=== PATIENT | female | born 1950 | race Caucasian/White ===

== ENCOUNTER 2019-01-28 13:02 | Inpatient (IN) ==
[2019-01-28] MEDS ORDERED: SODIUM CHLORIDE 0.9% 1,000 ML IV STA (14:06)
[2019-01-28 14:43] LABS: Apearance,Urine CLEAR (Clear); Bilirubin,Urine Negative (Negative); Blood, Urine Negative (Negative); Glucose,Urine (UA) >=500 mg/dL (Negative); Ketones,Urine Negative (Negative); Mucus,Urine Occasional /LPF (Occasional); Nitrite,Urine Negative (Negative); Protein,Urine Negative; RBC,Urine 2 /HPF (0-4); Squamous Epithelial Cell,Urine Occasional /HPF (0-10); Urine Color Yellow (Yellow); Urine Urobilinogen < 2.0 EU/DL (0.2-1.0); WBC,Urine 1 /HPF (0-6)
[2019-01-28 15:40] LABS: Basophils % 0.5 % (0.0-0.8); Eosinophils # 0.1 10*3/uL (0.0-0.87); Eosinophils % 0.7 % (0.00-10.9); Hematocrit 32.7 VOL% (35.7-47.0); Hemoglobin 9.9 GM/DL (12.0-16.0); Immature Granulocytes % 0.4 %; Immature Granulocytes Absolute 0.03 #; Lymphocytes % 27.1 % (21.3-54.2); Mean Corpuscular HGB Conc 30.3 GM/DL (32-36); Mean Corpuscular Volume 81.8 FL (87-102); Mean Platelet Volume 9.6 FL (9.6-12.0); Monocytes % 5.8 % (1.7-12.7); Neutrophils % 65.5 % (38.7-73.9); Platelet Count 446 T/CUMM (130-400); Red Cell Distribution Width 18.8 % (9.3-17.3); White Blood Count 7.3 T/CUMM (4-12)
[2019-01-28 16:05] LABS: Alanine Aminotransferase 11 U/L (13-56); Albumin 2.2 G/DL (3.4-5.0); Alkaline Phosphatase 104 U/L (45-117); Aspartate Amino Transferase 16 U/L (0-37); Bilirubin,Total < 0.39 MG/DL (0.2-1.0); Blood Urea Nitrogen 10 MG/DL (7-18); Calcium 7.3 MG/DL (8.5-10.1); Glucose 134 MG/DL (74-106); Osmolality,Calculated 275.7 MOS/KG (273-304); Total Protein 4.9 G/DL (6.4-8.3)
[2019-01-28 16:42] LABS: Sedimentation Rate-Westergren 11 MM/HR (0-30)
[2019-01-28] MEDS ORDERED: DOCUSATE SODIUM 100 MG CAPSULE PO PRN (17:37)
[2019-01-28] MEDS ORDERED: ACETAMINOPHEN 325 MG TABLET PO PRN (17:37)
[2019-01-28] MEDS ORDERED: POTASSIUM CHLORIDE 20 MEQ TABLET PO ONE (17:42)
[2019-01-28] MEDS ORDERED: DEXT 5% NACL 0.9% KCL 20 MEQ 20 MEQ/1,000 ML BAG IV SCH (18:00)
[2019-01-28 18:37] LABS: Barbiturates Screen,Urine Negative (Negative); Benzodiazepines Screen,Urine Negative (Negative); Cannabinoid Screen,Urine Negative (Negative); Opiate Screen,Urine Negative (Negative); Phencyclidine Screen,Urine Negative (Negative)
[2019-01-28] MEDS ORDERED: PNEUMOCOCCAL VACCINE (13 VALENT) 0.5 ML SYRINGE IM ONE (19:15)
[2019-01-28] MEDS: POTASSIUM CHLORIDE 20 MEQ TABLET PO SCH (21:09)
[2019-01-28] MEDS: ENOXAPARIN 30 MG/0.3 ML SYRINGE SUBCUT SCH (21:09)
[2019-01-28] MEDS: ONDANSETRON 4 MG/2 ML VIAL IV PRN (22:21)
[2019-01-29 06:24] LABS: Basophils % 0.5 % (0.0-0.8); Eosinophils % 0.4 % (0.00-10.9); Hematocrit 29.6 VOL% (35.7-47.0); Hemoglobin 9.3 GM/DL (12.0-16.0); Immature Granulocytes % 0.4 %; Immature Granulocytes Absolute 0.02 #; Lymphocytes # 1.9 10*3/uL (1.4-4.0); Lymphocytes % 34.8 % (21.3-54.2); Mean Corpuscular HGB Conc 31.4 GM/DL (32-36); Mean Corpuscular Volume 79.8 FL (87-102); Mean Platelet Volume 11.3 FL (9.6-12.0); Monocytes % 5.6 % (1.7-12.7); Neutrophils % 58.3 % (38.7-73.9); Platelet Count 269 T/CUMM (130-400); Red Blood Count 3.71 MC/CUMM (3.8-5.5); Red Cell Distribution Width 18.9 % (9.3-17.3); White Blood Count 5.5 T/CUMM (4-12)
[2019-01-29 06:42] LABS: % Iron Saturation 23.4 % (18-50); Ferritin 8.8 ng/ml (8-252)
[2019-01-29 06:51] LABS: Calcium 7.4 MG/DL (8.5-10.1); Osmolality,Calculated 278.3 MOS/KG (273-304); Thyroid Stimulating Hormone 3.6 uIU/ml (0.358-3.74)
[2019-01-29 06:52] LABS: Folate 6.8 NG/ML (5.4-24.0); Vitamin B12 286 PG/ML (211-911)
[2019-01-29] MEDS ORDERED: MAGNESIUM SULF RIDER 2 GM in PREMIX 1 EACH IV PRN (07:22)
[2019-01-29] MEDS ORDERED: MAGNESIUM SULF RIDER 4 GM in PREMIX 1 EACH IV PRN (07:22)
[2019-01-29] MEDS: POTASSIUM CHLORIDE 20 MEQ TABLET PO SCH ×3 (08:36→21:40)
[2019-01-29] MEDS: buPROPion SR 100 MG TABLET PO SCH (08:36)
[2019-01-29] MEDS: MULTIVITAMIN (BEROCCA) TABLET PO SCH (08:36)
[2019-01-29] MEDS: NICOTINE 21 MG/24 HR PATCH TRANSDERM SCH (08:37)
[2019-01-29 08:39] LABS: Sedimentation Rate-Westergren 7 MM/HR (0-30)
[2019-01-29] MEDS ORDERED: DEXTROSE 10% 250 ML BAG IV PRN (10:26)
[2019-01-29] MEDS ORDERED: GLUCAGON 1 MG VIAL IM PRN (10:26)
[2019-01-29] MEDS: CYANOCOBALAMIN 1000 MCG/1 ML VIAL IM SCH (11:13)
[2019-01-29] MEDS: SODIUM CHLOR 0.9% KCL 40 MEQ 40 MEQ/1,000 ML BAG IV SCH (11:13)
[2019-01-29] MEDS: FAT EMULSION 20% 250 ML IV SCH (14:16)
[2019-01-29] MEDS: ONDANSETRON 4 MG/2 ML VIAL IV PRN (14:47)
[2019-01-29] MEDS: ERGOCALCIFEROL 50,000 UNIT CAPSULE PO SCH (16:21)
[2019-01-29] MEDS ORDERED: TRACE ELEMENTS (5) 1 ML, MULTIVITAMIN INJ 10 ML in AMINO ACIDS/DEXT/LYTES 4.25-5% 2,000 ML IV SCH (17:00)
[2019-01-29] MEDS: PROMETHAZINE 25 MG/1 ML VIAL IM PRN (17:18)
[2019-01-29] MEDS: ENOXAPARIN 30 MG/0.3 ML SYRINGE SUBCUT SCH (21:40)
[2019-01-30] MEDS: PROMETHAZINE 25 MG/1 ML VIAL IM PRN (01:28)
[2019-01-30] MEDS: SODIUM CHLOR 0.9% KCL 40 MEQ 40 MEQ/1,000 ML BAG IV SCH (01:55)
[2019-01-30 04:43] LABS: Basophils % 0.4 % (0.0-0.8); Eosinophils # 0.1 10*3/uL (0.0-0.87); Eosinophils % 1.1 % (0.00-10.9); Hematocrit 28.5 VOL% (35.7-47.0); Hemoglobin 8.6 GM/DL (12.0-16.0); Immature Granulocytes % 0.4 %; Immature Granulocytes Absolute 0.03 #; Lymphocytes # 2.3 10*3/uL (1.4-4.0); Lymphocytes % 32.2 % (21.3-54.2); Mean Corpuscular HGB Conc 30.2 GM/DL (32-36); Mean Corpuscular Volume 82.6 FL (87-102); Mean Platelet Volume 10.7 FL (9.6-12.0); Monocytes % 6.1 % (1.7-12.7); Neutrophils % 59.8 % (38.7-73.9); Platelet Count 366 T/CUMM (130-400); Red Blood Count 3.45 MC/CUMM (3.8-5.5); Red Cell Distribution Width 18.8 % (9.3-17.3); White Blood Count 7.3 T/CUMM (4-12)
[2019-01-30 05:34] LABS: Calcium 7.4 MG/DL (8.5-10.1); Osmolality,Calculated 273.5 MOS/KG (273-304)
[2019-01-30] MEDS: POTASSIUM CHLORIDE 20 MEQ TABLET PO SCH ×3 (08:31→20:56)
[2019-01-30] MEDS: NICOTINE 21 MG/24 HR PATCH TRANSDERM SCH (08:31)
[2019-01-30] MEDS: MULTIVITAMIN (BEROCCA) TABLET PO SCH (08:31)
[2019-01-30] MEDS: buPROPion SR 100 MG TABLET PO SCH (08:32)
[2019-01-30] MEDS ORDERED: SODIUM PHOSPHATE INJ 15 MMOL in SODIUM CHLORIDE 0.9% 250 ML IV ONE (09:08)
[2019-01-30] MEDS ORDERED: IRON SUCROSE 100 MG/5 ML VIAL IV SCH (09:30)
[2019-01-30] MEDS: CYANOCOBALAMIN 1000 MCG/1 ML VIAL IM SCH (09:30)
[2019-01-30] MEDS: IRON SUCROSE 100 MG in SODIUM CHLORIDE 0.9% 100 ML IV SCH (14:11)
[2019-01-30] MEDS: FAT EMULSION 20% 250 ML IV SCH (14:40)
[2019-01-30] MEDS: TRACE ELEMENTS (5) 1 ML, MULTIVITAMIN INJ 10 ML in AMINO ACIDS/DEXT/LYTES 4.25-5% 2,000 ML IV SCH (17:14)
[2019-01-30] MEDS: diphenhydrAMINE CAP 25 MG CAPSULE PO PRN (20:56)
[2019-01-30] MEDS: ENOXAPARIN 30 MG/0.3 ML SYRINGE SUBCUT SCH (20:56)
[2019-01-31 04:38] LABS: Basophils % 0.4 % (0.0-0.8); Eosinophils # 0.1 10*3/uL (0.0-0.87); Eosinophils % 1.2 % (0.00-10.9); Hematocrit 30.6 VOL% (35.7-47.0); Hemoglobin 9.4 GM/DL (12.0-16.0); Immature Granulocytes % 0.3 %; Immature Granulocytes Absolute 0.02 #; Lymphocytes # 2.1 10*3/uL (1.4-4.0); Lymphocytes % 30.2 % (21.3-54.2); Mean Corpuscular HGB Conc 30.7 GM/DL (32-36); Mean Corpuscular Volume 80.5 FL (87-102); Mean Platelet Volume 10.2 FL (9.6-12.0); Monocytes % 6.2 % (1.7-12.7); Neutrophils % 61.7 % (38.7-73.9); Platelet Count 314 T/CUMM (130-400); Red Cell Distribution Width 18.8 % (9.3-17.3); White Blood Count 6.8 T/CUMM (4-12)
[2019-01-31 05:07] LABS: Calcium 7.2 MG/DL (8.5-10.1)
[2019-01-31] MEDS ORDERED: HEPARIN LOCK FLUSH 500 UNIT/5 ML SYRINGE IV PRN (08:30)
[2019-01-31] MEDS: POTASSIUM CHLORIDE 20 MEQ TABLET PO SCH ×3 (08:33→22:27)
[2019-01-31] MEDS: CYANOCOBALAMIN 1000 MCG/1 ML VIAL IM SCH (08:33)
[2019-01-31] MEDS: ERGOCALCIFEROL 50,000 UNIT CAPSULE PO SCH (08:33)
[2019-01-31] MEDS: buPROPion SR 100 MG TABLET PO SCH (08:33)
[2019-01-31] MEDS: MULTIVITAMIN (BEROCCA) TABLET PO SCH (08:33)
[2019-01-31] MEDS: NICOTINE 21 MG/24 HR PATCH TRANSDERM SCH (08:34)
[2019-01-31] MEDS: HEPARIN LOCK FLUSH 500 UNIT/5 ML SYRINGE IV SCH ×2 (08:53→22:28)
[2019-01-31] MEDS ORDERED: MAGNESIUM SULF RIDER 4 GM in PREMIX 1 EACH IV ONE (09:30)
[2019-01-31] MEDS: IRON SUCROSE 100 MG in SODIUM CHLORIDE 0.9% 100 ML IV SCH (10:07)
[2019-01-31 11:06] LABS: Hemoglobin A1 (Alkaline) 97.7 % (96.5-98.5); Hemoglobin A2 (Alkaline) 2.3 % (1.5-3.5)
[2019-01-31] MEDS: FAT EMULSION 20% 250 ML IV SCH (15:29)
[2019-01-31] MEDS: ENOXAPARIN 40 MG/0.4 ML SYRINGE SUBCUT SCH (22:14)
[2019-01-31] MEDS: TRACE ELEMENTS (5) 1 ML, MULTIVITAMIN INJ 10 ML in AMINO ACIDS/DEXT/LYTES 4.25-5% 2,000 ML IV SCH (22:39)
[2019-01-31] MEDS: diphenhydrAMINE CAP 25 MG CAPSULE PO PRN (22:41)
[2019-02-01 05:08] LABS: Basophils % 0.4 % (0.0-0.8); Eosinophils # 0.1 10*3/uL (0.0-0.87); Eosinophils % 1.8 % (0.00-10.9); Hematocrit 27.3 VOL% (35.7-47.0); Hemoglobin 8.5 GM/DL (12.0-16.0); Immature Granulocytes % 0.5 %; Immature Granulocytes Absolute 0.03 #; Lymphocytes # 1.9 10*3/uL (1.4-4.0); Mean Corpuscular HGB Conc 31.1 GM/DL (32-36); Mean Corpuscular Volume 80.3 FL (87-102); Mean Platelet Volume 10.7 FL (9.6-12.0); Monocytes % 5.6 % (1.7-12.7); Neutrophils % 58.7 % (38.7-73.9); Platelet Count 317 T/CUMM (130-400); Red Cell Distribution Width 18.9 % (9.3-17.3); White Blood Count 5.7 T/CUMM (4-12)
[2019-02-01 05:34] LABS: Calcium 7.9 MG/DL (8.5-10.1); Osmolality,Calculated 266.2 MOS/KG (273-304)
[2019-02-01] MEDS ORDERED: LACTATED RINGERS 1,000 ML IV SCH (08:00)
[2019-02-01] MEDS: CYANOCOBALAMIN 1000 MCG/1 ML VIAL IM SCH (08:46)
[2019-02-01] MEDS ORDERED: PROPOFOL 200 MG/20 ML VIAL IV ONE (09:00)
[2019-02-01] MEDS ORDERED: LIDOCAINE 2% 5 ML VIAL ONE (09:00)
[2019-02-01] MEDS: NICOTINE 21 MG/24 HR PATCH TRANSDERM SCH (12:27)
[2019-02-01] MEDS: HEPARIN LOCK FLUSH 500 UNIT/5 ML SYRINGE IV SCH ×2 (14:27→22:21)
[2019-02-01] MEDS: buPROPion SR 100 MG TABLET PO SCH (14:28)
[2019-02-01] MEDS: MULTIVITAMIN (BEROCCA) TABLET PO SCH (14:28)
[2019-02-01] MEDS: POTASSIUM CHLORIDE 20 MEQ TABLET PO SCH ×3 (14:28→22:19)
[2019-02-01] MEDS: FAT EMULSION 20% 250 ML IV SCH (14:33)
[2019-02-01] MEDS: IRON SUCROSE 100 MG in SODIUM CHLORIDE 0.9% 100 ML IV SCH (14:51)
[2019-02-01] MEDS: diphenhydrAMINE CAP 25 MG CAPSULE PO PRN (22:13)
[2019-02-01] MEDS: ENOXAPARIN 40 MG/0.4 ML SYRINGE SUBCUT SCH (22:19)
[2019-02-02] MEDS: TRACE ELEMENTS (5) 1 ML, MULTIVITAMIN INJ 10 ML in AMINO ACIDS/DEXT/LYTES 4.25-5% 2,000 ML IV SCH (00:10)
[2019-02-02] MEDS: HEPARIN LOCK FLUSH 500 UNIT/5 ML SYRINGE IV SCH ×3 (00:53→21:09)
[2019-02-02 04:59] LABS: Basophils % 0.3 % (0.0-0.8); Eosinophils # 0.1 10*3/uL (0.0-0.87); Eosinophils % 1.3 % (0.00-10.9); Hematocrit 24.1 VOL% (35.7-47.0); Hemoglobin 7.5 GM/DL (12.0-16.0); Immature Granulocytes % 0.5 %; Immature Granulocytes Absolute 0.06 #; Lymphocytes # 1.5 10*3/uL (1.4-4.0); Lymphocytes % 13.5 % (21.3-54.2); Mean Corpuscular HGB Conc 31.1 GM/DL (32-36); Mean Corpuscular Volume 80.6 FL (87-102); Mean Platelet Volume 10.9 FL (9.6-12.0); Monocytes % 4.8 % (1.7-12.7); Neutrophils % 79.6 % (38.7-73.9); Platelet Count 297 T/CUMM (130-400); Red Blood Count 2.99 MC/CUMM (3.8-5.5); Red Cell Distribution Width 18.9 % (9.3-17.3)
[2019-02-02 05:39] LABS: Calcium 7.9 MG/DL (8.5-10.1); Osmolality,Calculated 270.1 MOS/KG (273-304)
[2019-02-02] MEDS ORDERED: SODIUM CHLORIDE 0.9% 1,000 ML IV PRN (08:43)
[2019-02-02] MEDS: POTASSIUM CHLORIDE 20 MEQ TABLET PO SCH ×3 (08:58→20:23)
[2019-02-02] MEDS: CYANOCOBALAMIN 1000 MCG/1 ML VIAL IM SCH (08:58)
[2019-02-02] MEDS: NICOTINE 21 MG/24 HR PATCH TRANSDERM SCH (08:59)
[2019-02-02] MEDS: buPROPion SR 100 MG TABLET PO SCH (14:24)
[2019-02-02] MEDS: MULTIVITAMIN (BEROCCA) TABLET PO SCH (14:24)
[2019-02-02] MEDS ORDERED: MULTIVITAMIN IV SCH (17:00)
[2019-02-02] MEDS ORDERED: [UNRECOGNIZED DRUG - OTHER] IV SCH (17:00)
[2019-02-02] MEDS ORDERED: SODIUM PHOSPHATE IV SCH (17:00)
[2019-02-02] MEDS ORDERED: TRACE ELEMENTS IV SCH (17:00)
[2019-02-02] MEDS ORDERED: DEXTROSE 10% 1,000 ML IV PRN (17:00)
[2019-02-02] MEDS ORDERED: ZALEPLON 5 MG CAPSULE PO PRN (17:39)
[2019-02-02] MEDS: INSULIN REGULAR 100 UNIT/ML SUBCUT SCH (19:21)
[2019-02-02] MEDS: ENOXAPARIN 40 MG/0.4 ML SYRINGE SUBCUT SCH (20:23)
[2019-02-02 22:35] LABS: Hematocrit 34.6 VOL% (35.7-47.0); Hemoglobin 11.3 GM/DL (12.0-16.0)
[2019-02-03] MEDS: INSULIN REGULAR 100 UNIT/ML SUBCUT SCH ×3 (00:51→12:20)
[2019-02-03 05:43] LABS: Basophils % 0.3 % (0.0-0.8); Eosinophils # 0.1 10*3/uL (0.0-0.87); Eosinophils % 1.6 % (0.00-10.9); Hematocrit 37.2 VOL% (35.7-47.0); Hemoglobin 12.3 GM/DL (12.0-16.0); Immature Granulocytes % 0.4 %; Immature Granulocytes Absolute 0.03 #; Lymphocytes # 1.5 10*3/uL (1.4-4.0); Lymphocytes % 21.7 % (21.3-54.2); Mean Corpuscular HGB Conc 33.1 GM/DL (32-36); Mean Platelet Volume 10.6 FL (9.6-12.0); Monocytes % 5.7 % (1.7-12.7); Neutrophils % 70.3 % (38.7-73.9); Platelet Count 275 T/CUMM (130-400); Red Blood Count 4.65 MC/CUMM (3.8-5.5); White Blood Count 6.9 T/CUMM (4-12)
[2019-02-03 06:07] LABS: Calcium 8.3 MG/DL (8.5-10.1); Osmolality,Calculated 272.2 MOS/KG (273-304)
[2019-02-03 06:12] LABS: Prealbumin 9.7 MG/DL (20-40)
[2019-02-03] MEDS: CYANOCOBALAMIN 1000 MCG/1 ML VIAL IM SCH (08:08)
[2019-02-03] MEDS: MULTIVITAMIN (BEROCCA) TABLET PO SCH (08:14)
[2019-02-03] MEDS: buPROPion SR 100 MG TABLET PO SCH (08:14)
[2019-02-03] MEDS: POTASSIUM CHLORIDE 20 MEQ TABLET PO SCH ×2 (08:15→14:47)
[2019-02-03] MEDS: HEPARIN LOCK FLUSH 500 UNIT/5 ML SYRINGE IV SCH (09:01)
[2019-02-03] MEDS: NICOTINE 21 MG/24 HR PATCH TRANSDERM SCH (09:02)
[2019-02-03 12:06] VITALS: BP 169/76
[2019-02-03] MEDS ORDERED: CYANOCOBALAMIN 1000 MCG/1 ML VIAL IM SCH (12:30)
[2019-02-03] MEDS ORDERED: FAT EMULSION 20% 250 ML IV SCH (14:00)
[2019-02-03] MEDS ORDERED: DEXTROSE 30% IV SCH (17:00)
[2019-02-03] MEDS ORDERED: SODIUM PHOSPHATE IV SCH (17:00)
[2019-02-03] MEDS ORDERED: AMINO ACIDS 10% IV SCH (17:00)
[2019-02-03] MEDS ORDERED: TRACE ELEMENTS IV SCH (17:00)
[2019-02-03] MEDS ORDERED: MULTIVITAMIN IV SCH (17:00)
[2019-02-03] MEDS ORDERED: [UNRECOGNIZED DRUG - OTHER] IV SCH (17:00)
== END 2019-02-03 15:47 | DRG 393 ==
LOC: EDUNIT# → EDBD → N.ED 13:02 → N.2E 17:22
PROVIDERS: ADMIT Internal Medicine; ATTEND Internal Medicine

== ENCOUNTER 2021-04-03 00:19 | Inpatient (IN) ==
[2021-04-03] MEDS ORDERED: SODIUM CHLORIDE 0.9% 500 ML IV STA (00:41)
[2021-04-03] MEDS ORDERED: methylPREDNISolone SOD SUC 125 MG/2 ML VIAL IV STA (00:41)
[2021-04-03] MEDS ORDERED: ONDANSETRON 4 MG/2 ML VIAL IV STA (00:41)
[2021-04-03 01:34] LABS: Basophils # 0.1 10*3/uL (0.0-0.2); Basophils % 0.4 % (0.0-0.8); Eosinophils # 0.1 10*3/uL (0.0-0.87); Hematocrit 36.2 VOL% (35.7-47.0); Hemoglobin 11.2 GM/DL (12.0-16.0); Immature Granulocytes % 1.6 %; Immature Granulocytes Absolute 0.18 #; Lymphocytes # 2.3 10*3/uL (1.4-4.0); Lymphocytes % 20.6 % (21.3-54.2); Mean Corpuscular HGB Conc 30.9 GM/DL (32-36); Mean Corpuscular Volume 91.4 FL (87-102); Mean Platelet Volume 9.5 FL (9.6-12.0); Monocytes % 3.4 % (1.7-12.7); Platelet Count 779 T/CUMM (130-400); Red Blood Count 3.96 MC/CUMM (3.8-5.5); Red Cell Distribution Width 16.1 % (9.3-17.3); White Blood Count 11.1 T/CUMM (4-12)
[2021-04-03 02:15] LABS: Alanine Aminotransferase < 9 U/L (13-56); Albumin 2.3 G/DL (3.4-5.0); Alkaline Phosphatase 83 U/L (45-117); Aspartate Amino Transferase 23 U/L (0-37); Bilirubin,Total < 0.39 MG/DL (0.20-1.00); Blood Urea Nitrogen 16 MG/DL (7-18); Calcium 8.1 MG/DL (8.5-10.1); Carbon Dioxide 24 MMOL/L (21-32); Estimated Glom Filtration Rate 64 ML/MIN; Glucose 89 MG/DL (74-106); Osmolality,Calculated 280.3 MOS/KG (273-304); Potassium 3.9 MMOL/L (3.5-5.1); Sodium 141 MMOL/L (136-145); Total Protein 6.3 G/DL (6.4-8.2)
[2021-04-03 02:41] LABS: Barbiturates Screen,Urine Negative (Negative); Benzodiazepines Screen,Urine Negative (Negative); Cannabinoid Screen,Urine Negative (Negative); Opiate Screen,Urine Negative (Negative); Phencyclidine Screen,Urine Negative (Negative)
[2021-04-03 02:44] LABS: Bacteria,Urine Moderate /HPF (Few); Bilirubin,Urine Negative (Negative); Blood, Urine Negative (Negative); Glucose,Urine (UA) Negative (Negative); Hyaline Casts,Urine 10 /LPF (0-3); Ketones,Urine Negative (Negative); Mucus,Urine Occasional /LPF (Occasional); Nitrite,Urine Negative (Negative); Protein,Urine 30 MG/DL; RBC,Urine 3 /HPF (0-4); Urine Appearance Slightly Hazy (Clear); Urine Color Yellow (Yellow); Urine Specific Gravity 1.015 (1.001-1.035); Urine Urobilinogen < 2.0 EU/DL (0.2-1.0)
[2021-04-03] MEDS ORDERED: PIPERACILLIN/TAZOBACTAM 3,375 MG in SODIUM CHLORIDE 0.9% 100 ML IV STA (02:49)
[2021-04-03] MEDS ORDERED: DICYCLOMINE 10 MG CAPSULE PO PRN (04:37)
[2021-04-03 08:01] LABS: Albumin 1.9 G/DL (3.4-5.0); Bilirubin,Total 0.8 MG/DL (0.20-1.00); Calcium 7.6 MG/DL (8.5-10.1); Osmolality,Calculated 287.3 MOS/KG (273-304); Potassium 3.2 MMOL/L (3.5-5.1); Thyroid Stimulating Hormone 1.23 uIU/ml (0.358-3.74); Total Protein 5.9 G/DL (6.4-8.2)
[2021-04-03] MEDS: MULTIVITAMIN (CENTRUM) TABLET PO SCH (09:44)
[2021-04-03] MEDS: NICOTINE 21 MG/24 HR PATCH TRANSDERM SCH (09:44)
[2021-04-03] MEDS: FLUoxetine 20 MG CAPSULE PO SCH (09:44)
[2021-04-03] MEDS: PANTOPRAZOLE 40 MG TABLET PO SCH (09:44)
[2021-04-03] MEDS: METOCLOPRAMIDE 10 MG TABLET PO SCH ×2 (09:44→21:12)
[2021-04-03] MEDS: oxyCODONE IR 5 MG TABLET PO PRN (11:31)
[2021-04-03] MEDS ORDERED: cefTRIAXone 1,000 MG in SODIUM CHLORIDE 0.9% 100 ML IV SCH (12:00)
[2021-04-03] MEDS: POTASSIUM CHLORIDE 20 MEQ TABLET PO PRN ×2 (21:12→23:24)
[2021-04-03] MEDS: traZODone 50 MG TABLET PO PRN (22:49)
[2021-04-03] MEDS: ALBUTEROL 2.5 MG/3 ML NEB RESP TX PRN (23:10)
[2021-04-04] MEDS: POTASSIUM CHLORIDE 20 MEQ TABLET PO PRN ×2 (01:10→03:09)
[2021-04-04 06:05] LABS: Basophils # 0.1 10*3/uL (0.0-0.2); Basophils % 0.2 % (0.0-0.8); Hematocrit 30.5 VOL% (35.7-47.0); Hemoglobin 9.3 GM/DL (12.0-16.0); Immature Granulocytes Absolute 0.31 #; Lymphocytes # 1.8 10*3/uL (1.4-4.0); Lymphocytes % 5.7 % (21.3-54.2); Mean Corpuscular HGB Conc 30.5 GM/DL (32-36); Mean Corpuscular Volume 92.7 FL (87-102); Mean Platelet Volume 9.9 FL (9.6-12.0); Monocytes % 2.5 % (1.7-12.7); Neutrophils % 90.6 % (38.7-73.9); Platelet Count 732 T/CUMM (130-400); Red Blood Count 3.29 MC/CUMM (3.8-5.5); Red Cell Distribution Width 16.2 % (9.3-17.3); White Blood Count 32.1 T/CUMM (4-12)
[2021-04-04 06:26] LABS: Hypochromasia 1+; Lymphocytes 8 % (20-55); Microcytosis 1+; Platelet Estimate Increased; Segmented Neutrophils 89 % (50-85); Total Cells Counted 100
[2021-04-04 06:32] LABS: Calcium 8.3 MG/DL (8.5-10.1); Osmolality,Calculated 276.4 MOS/KG (273-304); Potassium 4.9 MMOL/L (3.5-5.1)
[2021-04-04] MEDS: MEROPENEM 500 MG in SODIUM CHLORIDE 0.9% 100 ML IV SCH ×4 (11:00→21:45)
[2021-04-04] MEDS ORDERED: LACTATED RINGERS 1,000 ML IV SCH (11:30)
[2021-04-04] MEDS: MULTIVITAMIN (CENTRUM) TABLET PO SCH (11:42)
[2021-04-04] MEDS: METOCLOPRAMIDE 10 MG TABLET PO SCH ×2 (11:42→21:45)
[2021-04-04] MEDS: FLUoxetine 20 MG CAPSULE PO SCH (11:43)
[2021-04-04] MEDS: PANTOPRAZOLE 40 MG TABLET PO SCH (11:43)
[2021-04-04] MEDS: NICOTINE 21 MG/24 HR PATCH TRANSDERM SCH (11:44)
[2021-04-04] MEDS: oxyCODONE IR 5 MG TABLET PO PRN ×3 (12:11→21:45)
[2021-04-04] MEDS: DEXTROSE 5% NACL 0.45% 1,000 ML IV SCH (18:04)
[2021-04-04 19:28] LABS: Bacteria,Urine Occasional /HPF (Few); Bilirubin,Urine Negative (Negative); Blood, Urine Negative (Negative); Glucose,Urine (UA) Negative (Negative); Hyaline Casts,Urine 4 /LPF (0-3); Ketones,Urine Negative (Negative); Mucus,Urine Occasional /LPF (Occasional); Nitrite,Urine Negative (Negative); Protein,Urine Negative; RBC,Urine 2 /HPF (0-4); Squamous Epithelial Cell,Urine Occasional /HPF (0-10); Urine Appearance Slightly Hazy (Clear); Urine Color Yellow (Yellow); Urine Specific Gravity 1.015 (1.001-1.035); Urine Urobilinogen < 2.0 EU/DL (0.2-1.0)
[2021-04-05] MEDS: MEROPENEM 500 MG in SODIUM CHLORIDE 0.9% 100 ML IV SCH ×4 (03:04→21:46)
[2021-04-05] MEDS: oxyCODONE IR 5 MG TABLET PO PRN ×4 (05:14→22:49)
[2021-04-05 06:58] LABS: Basophils # 0.1 10*3/uL (0.0-0.2); Basophils % 0.2 % (0.0-0.8); Eosinophils # 0.1 10*3/uL (0.0-0.87); Eosinophils % 0.4 % (0.00-10.9); Hematocrit 27.6 VOL% (35.7-47.0); Hemoglobin 8.4 GM/DL (12.0-16.0); Immature Granulocytes % 1.4 %; Immature Granulocytes Absolute 0.29 #; Lymphocytes # 1.8 10*3/uL (1.4-4.0); Lymphocytes % 8.8 % (21.3-54.2); Mean Corpuscular HGB Conc 30.4 GM/DL (32-36); Mean Corpuscular Volume 93.6 FL (87-102); Mean Platelet Volume 9.6 FL (9.6-12.0); Monocytes % 3.9 % (1.7-12.7); Neutrophils % 85.3 % (38.7-73.9); Platelet Count 624 T/CUMM (130-400); Red Blood Count 2.95 MC/CUMM (3.8-5.5); Red Cell Distribution Width 16.3 % (9.3-17.3); White Blood Count 20.7 T/CUMM (4-12)
[2021-04-05 07:17] LABS: Hypochromasia 1+; Lymphocytes 9 % (20-55); Microcytosis 1+; Platelet Estimate Increased; Segmented Neutrophils 91 % (50-85); Total Cells Counted 100
[2021-04-05 07:18] LABS: Ovalocytes Slight
[2021-04-05 07:28] LABS: Calcium 7.9 MG/DL (8.5-10.1); Osmolality,Calculated 276.4 MOS/KG (273-304); Potassium 4.7 MMOL/L (3.5-5.1)
[2021-04-05] MEDS ORDERED: LACTATED RINGERS 1,000 ML IV SCH (08:00)
[2021-04-05] MEDS: NICOTINE 21 MG/24 HR PATCH TRANSDERM SCH (11:07)
[2021-04-05] MEDS: MULTIVITAMIN (CENTRUM) TABLET PO SCH (11:07)
[2021-04-05] MEDS: METOCLOPRAMIDE 10 MG TABLET PO SCH ×2 (11:12→21:45)
[2021-04-05] MEDS: PANTOPRAZOLE 40 MG TABLET PO SCH (11:13)
[2021-04-05] MEDS: FLUoxetine 20 MG CAPSULE PO SCH (11:18)
[2021-04-05] MEDS ORDERED: cefTRIAXone 1,000 MG VIAL IM ONE (15:39)
[2021-04-05] MEDS ORDERED: MAGNESIUM SULF RIDER 2 GM/50 ML PREMIX IV PRN (16:21)
[2021-04-05] MEDS: ONDANSETRON 4 MG/2 ML VIAL IV PRN (17:22)
[2021-04-05] MEDS: DEXTROSE 5% NACL 0.45% 1,000 ML IV SCH (20:11)
[2021-04-06] MEDS: MEROPENEM 500 MG in SODIUM CHLORIDE 0.9% 100 ML IV SCH ×4 (03:35→22:05)
[2021-04-06] MEDS: ONDANSETRON 4 MG/2 ML VIAL IV PRN ×3 (04:39→22:04)
[2021-04-06 05:31] LABS: Basophils % 0.2 % (0.0-0.8); Eosinophils # 0.2 10*3/uL (0.0-0.87); Hematocrit 29.1 VOL% (35.7-47.0); Hemoglobin 8.8 GM/DL (12.0-16.0); Immature Granulocytes % 1.4 %; Immature Granulocytes Absolute 0.23 #; Lymphocytes # 1.5 10*3/uL (1.4-4.0); Mean Corpuscular HGB Conc 30.2 GM/DL (32-36); Mean Corpuscular Volume 92.7 FL (87-102); Neutrophils % 84.4 % (38.7-73.9); Platelet Count 620 T/CUMM (130-400); Red Blood Count 3.14 MC/CUMM (3.8-5.5); Red Cell Distribution Width 16.2 % (9.3-17.3); White Blood Count 16.6 T/CUMM (4-12)
[2021-04-06 06:13] LABS: Calcium 7.9 MG/DL (8.5-10.1); Osmolality,Calculated 274.5 MOS/KG (273-304)
[2021-04-06] MEDS: oxyCODONE IR 5 MG TABLET PO PRN ×4 (07:33→23:35)
[2021-04-06] MEDS: DEXTROSE 5% NACL 0.45% 1,000 ML IV SCH (09:20)
[2021-04-06] MEDS: METOCLOPRAMIDE 10 MG TABLET PO SCH ×2 (09:21→22:04)
[2021-04-06] MEDS: FLUoxetine 20 MG CAPSULE PO SCH (09:22)
[2021-04-06] MEDS: PANTOPRAZOLE 40 MG TABLET PO SCH (09:22)
[2021-04-06] MEDS: MULTIVITAMIN (CENTRUM) TABLET PO SCH (09:22)
[2021-04-06] MEDS: MAGNESIUM OXIDE 400 MG TABLET PO SCH ×2 (09:22→22:04)
[2021-04-06] MEDS: NICOTINE 21 MG/24 HR PATCH TRANSDERM SCH (09:23)
[2021-04-06] MEDS: ALBUTEROL 2.5 MG/3 ML NEB RESP TX PRN (20:33)
[2021-04-07] MEDS: ACETAMINOPHEN 325 MG TABLET PO PRN ×2 (01:35→07:31)
[2021-04-07] MEDS: MEROPENEM 500 MG in SODIUM CHLORIDE 0.9% 100 ML IV SCH ×4 (04:08→21:09)
[2021-04-07 06:04] LABS: Basophils % 0.3 % (0.0-0.8); Eosinophils # 0.2 10*3/uL (0.0-0.87); Eosinophils % 1.4 % (0.00-10.9); Hemoglobin 9.1 GM/DL (12.0-16.0); Immature Granulocytes % 1.5 %; Immature Granulocytes Absolute 0.18 #; Lymphocytes # 1.5 10*3/uL (1.4-4.0); Lymphocytes % 12.5 % (21.3-54.2); Mean Corpuscular HGB Conc 30.3 GM/DL (32-36); Mean Corpuscular Volume 91.7 FL (87-102); Mean Platelet Volume 10.2 FL (9.6-12.0); Neutrophils % 79.3 % (38.7-73.9); Platelet Count 623 T/CUMM (130-400); Red Blood Count 3.27 MC/CUMM (3.8-5.5); Red Cell Distribution Width 15.8 % (9.3-17.3); White Blood Count 11.9 T/CUMM (4-12)
[2021-04-07 06:28] LABS: Calcium 7.7 MG/DL (8.5-10.1); Osmolality,Calculated 275.4 MOS/KG (273-304); Potassium 3.3 MMOL/L (3.5-5.1)
[2021-04-07] MEDS: DEXTROSE 5% NACL 0.45% 1,000 ML IV SCH (08:20)
[2021-04-07] MEDS: METOCLOPRAMIDE 10 MG TABLET PO SCH ×2 (08:22→21:09)
[2021-04-07] MEDS: NICOTINE 21 MG/24 HR PATCH TRANSDERM SCH (08:22)
[2021-04-07] MEDS: FLUoxetine 20 MG CAPSULE PO SCH (08:23)
[2021-04-07] MEDS: MAGNESIUM OXIDE 400 MG TABLET PO SCH ×2 (08:23→21:09)
[2021-04-07] MEDS: MULTIVITAMIN (CENTRUM) TABLET PO SCH (08:23)
[2021-04-07] MEDS: PANTOPRAZOLE 40 MG TABLET PO SCH (08:23)
[2021-04-07] MEDS: oxyCODONE IR 5 MG TABLET PO PRN ×3 (09:50→21:10)
[2021-04-07] MEDS: ONDANSETRON 4 MG/2 ML VIAL IV PRN (09:55)
[2021-04-07] MEDS: POTASSIUM CHLORIDE 20 MEQ TABLET PO PRN ×3 (10:06→15:39)
[2021-04-08] MEDS: oxyCODONE IR 5 MG TABLET PO PRN ×2 (03:11→21:37)
[2021-04-08] MEDS: MEROPENEM 500 MG in SODIUM CHLORIDE 0.9% 100 ML IV SCH ×4 (03:57→21:35)
[2021-04-08 05:06] LABS: Basophils % 0.4 % (0.0-0.8); Eosinophils # 0.3 10*3/uL (0.0-0.87); Eosinophils % 2.8 % (0.00-10.9); Hematocrit 26.4 VOL% (35.7-47.0); Hemoglobin 8.1 GM/DL (12.0-16.0); Immature Granulocytes % 1.2 %; Immature Granulocytes Absolute 0.12 #; Lymphocytes # 1.5 10*3/uL (1.4-4.0); Lymphocytes % 14.9 % (21.3-54.2); Mean Corpuscular HGB Conc 30.7 GM/DL (32-36); Mean Platelet Volume 9.9 FL (9.6-12.0); Monocytes % 5.6 % (1.7-12.7); Neutrophils % 75.1 % (38.7-73.9); Platelet Count 584 T/CUMM (130-400); Red Blood Count 2.87 MC/CUMM (3.8-5.5); Red Cell Distribution Width 15.6 % (9.3-17.3)
[2021-04-08 05:34] LABS: Calcium 7.6 MG/DL (8.5-10.1); Osmolality,Calculated 274.4 MOS/KG (273-304); Potassium 4.8 MMOL/L (3.5-5.1)
[2021-04-08] MEDS ORDERED: LORazepam 2 MG/1 ML VIAL IV ONE (06:47)
[2021-04-08] MEDS: DEXTROSE 5% NACL 0.45% 1,000 ML IV SCH (06:55)
[2021-04-08] MEDS: MULTIVITAMIN (CENTRUM) TABLET PO SCH (10:08)
[2021-04-08] MEDS: MAGNESIUM OXIDE 400 MG TABLET PO SCH ×2 (10:08→21:37)
[2021-04-08] MEDS: FLUoxetine 20 MG CAPSULE PO SCH (10:12)
[2021-04-08] MEDS: PANTOPRAZOLE 40 MG TABLET PO SCH (10:12)
[2021-04-08] MEDS: NICOTINE 21 MG/24 HR PATCH TRANSDERM SCH (10:12)
[2021-04-08] MEDS: METOCLOPRAMIDE 10 MG TABLET PO SCH ×2 (10:13→21:37)
[2021-04-08] MEDS: LACTATED RINGERS 1,000 ML IV SCH (10:54)
[2021-04-08] MEDS ORDERED: FAMOTIDINE 20 MG/2 ML VIAL IV STA (11:42)
[2021-04-08] MEDS ORDERED: LIDOCAINE 2% 5 ML VIAL ONE (12:28)
[2021-04-08] MEDS ORDERED: propofoL 200 MG/20 ML VIAL IV ONE (12:28)
[2021-04-08] MEDS ORDERED: ONDANSETRON 4 MG/2 ML VIAL ONE (12:29)
[2021-04-08] MEDS ORDERED: SODIUM CHLORIDE 0.9% 1,000 ML IV PRN (16:42)
[2021-04-09] MEDS: traZODone 50 MG TABLET PO PRN (01:30)
[2021-04-09] MEDS: ONDANSETRON 4 MG/2 ML VIAL IV PRN (05:05)
[2021-04-09] MEDS: MEROPENEM 500 MG in SODIUM CHLORIDE 0.9% 100 ML IV SCH ×4 (05:32→22:09)
[2021-04-09 06:04] LABS: Basophils # 0.1 10*3/uL (0.0-0.2); Basophils % 0.3 % (0.0-0.8); Calcium 7.5 MG/DL (8.5-10.1); Eosinophils # 0.2 10*3/uL (0.0-0.87); Eosinophils % 1.5 % (0.00-10.9); Hematocrit 36.3 VOL% (35.7-47.0); Immature Granulocytes % 0.7 %; Lymphocytes # 1.3 10*3/uL (1.4-4.0); Lymphocytes % 8.9 % (21.3-54.2); Mean Corpuscular HGB Conc 30.6 GM/DL (32-36); Mean Corpuscular Volume 88.3 FL (87-102); Mean Platelet Volume 9.7 FL (9.6-12.0); Monocytes % 4.4 % (1.7-12.7); Neutrophils % 84.2 % (38.7-73.9); Osmolality,Calculated 268.8 MOS/KG (273-304); Platelet Count 596 T/CUMM (130-400); Potassium 3.9 MMOL/L (3.5-5.1); Red Cell Distribution Width 16.2 % (9.3-17.3)
[2021-04-09 06:07] LABS: Red Blood Count 4.11 MC/CUMM (3.8-5.5); White Blood Count 14.7 T/CUMM (4-12)
[2021-04-09 06:08] LABS: Hemoglobin 11.1 GM/DL (12.0-16.0)
[2021-04-09] MEDS: DEXTROSE 5% NACL 0.45% 1,000 ML IV SCH (11:19)
[2021-04-09] MEDS: MULTIVITAMIN (CENTRUM) TABLET PO SCH (11:21)
[2021-04-09] MEDS: PANTOPRAZOLE 40 MG TABLET PO SCH (11:22)
[2021-04-09] MEDS: FLUoxetine 20 MG CAPSULE PO SCH (11:22)
[2021-04-09] MEDS: METOCLOPRAMIDE 10 MG TABLET PO SCH ×2 (11:22→21:58)
[2021-04-09] MEDS: NICOTINE 21 MG/24 HR PATCH TRANSDERM SCH (11:24)
[2021-04-09] MEDS: MAGNESIUM OXIDE 400 MG TABLET PO SCH ×2 (11:25→21:58)
[2021-04-09] MEDS: LACTATED RINGERS 1,000 ML IV SCH (12:13)
[2021-04-09] MEDS: oxyCODONE IR 5 MG TABLET PO PRN ×2 (12:30→18:14)
[2021-04-10] MEDS: ONDANSETRON 4 MG/2 ML VIAL IV PRN ×2 (02:41→07:25)
[2021-04-10] MEDS: MEROPENEM 500 MG in SODIUM CHLORIDE 0.9% 100 ML IV SCH ×3 (04:02→18:01)
[2021-04-10 06:24] LABS: Calcium 7.4 MG/DL (8.5-10.1); Osmolality,Calculated 274.4 MOS/KG (273-304); Potassium 3.4 MMOL/L (3.5-5.1)
[2021-04-10] MEDS: MAGNESIUM OXIDE 400 MG TABLET PO SCH ×2 (08:51→22:33)
[2021-04-10] MEDS: PANTOPRAZOLE 40 MG TABLET PO SCH (08:51)
[2021-04-10] MEDS: MULTIVITAMIN (CENTRUM) TABLET PO SCH (08:51)
[2021-04-10] MEDS: FLUoxetine 20 MG CAPSULE PO SCH (08:52)
[2021-04-10] MEDS: METOCLOPRAMIDE 10 MG TABLET PO SCH ×2 (08:52→22:34)
[2021-04-10] MEDS ORDERED: MIDAZOLAM 2 MG/2 ML VIAL ONE (09:09)
[2021-04-10] MEDS ORDERED: fentaNYL 100 MCG/2 ML VIAL ONE (09:09)
[2021-04-10] MEDS ORDERED: propofoL 200 MG/20 ML VIAL IV ONE (09:11)
[2021-04-10] MEDS ORDERED: SEVOFLURANE 1 UNIT/15 MINUTE INH ONE ×4 (09:11→10:35)
[2021-04-10] MEDS ORDERED: ROCURONIUM 50 MG/5 ML VIAL IV ONE (09:11)
[2021-04-10] MEDS ORDERED: SUCCINYLCHOLINE 200 MG/10 ML VIAL ONE (09:11)
[2021-04-10] MEDS ORDERED: LIDOCAINE 2% 5 ML VIAL ONE (09:11)
[2021-04-10] MEDS ORDERED: ONDANSETRON 4 MG/2 ML VIAL ONE (09:11)
[2021-04-10] MEDS ORDERED: LACTATED RINGERS 1,000 ML IV SCH (09:30)
[2021-04-10] MEDS ORDERED: PHENYLEPHRINE 1 MG/10 ML SYRINGE IV ONE ×2 (09:58→10:17)
[2021-04-10] MEDS ORDERED: GLYCOPYRROLATE 0.4 MG/2 ML VIAL ONE (09:58)
[2021-04-10] MEDS: DEXTROSE 5% NACL 0.45% 1,000 ML IV SCH (10:19)
[2021-04-10] MEDS ORDERED: ONDANSETRON 4 MG/2 ML VIAL IV PRN (11:20)
[2021-04-10] MEDS ORDERED: HYDROmorphone 2 MG/1 ML VIAL IV PRN (11:20)
[2021-04-10] MEDS ORDERED: HYDROmorphone 2 MG/1 ML VIAL ONE (11:23)
[2021-04-10] MEDS: LACTATED RINGERS 1,000 ML IV SCH ×2 (12:50→13:01)
[2021-04-10] MEDS: NICOTINE 21 MG/24 HR PATCH TRANSDERM SCH (12:51)
[2021-04-10] MEDS: KETOROLAC 15 MG/1 ML VIAL IV SCH ×2 (12:54→18:01)
[2021-04-10] MEDS ORDERED: POTASSIUM CHLORIDE RIDER 10 MEQ/100 ML PREMIX IV PRN (15:40)
[2021-04-10] MEDS: HYDROmorphone 2 MG/1 ML VIAL IV PRN (16:28)
[2021-04-11] MEDS: LACTATED RINGERS 1,000 ML IV SCH ×2 (00:04→15:18)
[2021-04-11] MEDS: KETOROLAC 15 MG/1 ML VIAL IV SCH ×4 (00:11→21:02)
[2021-04-11] MEDS: DEXTROSE 5% NACL 0.45% 1,000 ML IV SCH (00:57)
[2021-04-11] MEDS: MEROPENEM 500 MG in SODIUM CHLORIDE 0.9% 100 ML IV SCH ×4 (00:57→21:02)
[2021-04-11 06:06] LABS: Basophils % 0.2 % (0.0-0.8); Eosinophils % 0.3 % (0.00-10.9); Hematocrit 32.9 VOL% (35.7-47.0); Hemoglobin 9.9 GM/DL (12.0-16.0); Immature Granulocytes % 1.2 %; Immature Granulocytes Absolute 0.15 #; Lymphocytes # 1.7 10*3/uL (1.4-4.0); Lymphocytes % 13.6 % (21.3-54.2); Mean Corpuscular HGB Conc 30.1 GM/DL (32-36); Mean Corpuscular Volume 92.2 FL (87-102); Mean Platelet Volume 9.8 FL (9.6-12.0); Monocytes % 6.5 % (1.7-12.7); Neutrophils % 78.2 % (38.7-73.9); Platelet Count 539 T/CUMM (130-400); Red Blood Count 3.57 MC/CUMM (3.8-5.5); Red Cell Distribution Width 16.3 % (9.3-17.3); White Blood Count 12.2 T/CUMM (4-12)
[2021-04-11 06:24] LABS: Calcium 7.5 MG/DL (8.5-10.1); Osmolality,Calculated 273.5 MOS/KG (273-304); Potassium 3.8 MMOL/L (3.5-5.1)
[2021-04-11] MEDS: MULTIVITAMIN (CENTRUM) TABLET PO SCH (08:31)
[2021-04-11] MEDS: MAGNESIUM OXIDE 400 MG TABLET PO SCH ×2 (08:31→21:01)
[2021-04-11] MEDS: oxyCODONE/ACETAMINOPHEN 5-325 MG TABLET PO PRN ×2 (08:32→15:15)
[2021-04-11] MEDS: PANTOPRAZOLE 40 MG TABLET PO SCH (09:27)
[2021-04-11] MEDS: FLUoxetine 20 MG CAPSULE PO SCH (09:27)
[2021-04-11] MEDS: METOCLOPRAMIDE 10 MG TABLET PO SCH ×2 (09:27→21:01)
[2021-04-11] MEDS: NICOTINE 21 MG/24 HR PATCH TRANSDERM SCH (09:28)
[2021-04-11] MEDS ORDERED: DEXTROSE 50% 25 GM/50 ML VIAL IV PRN (14:29)
[2021-04-11] MEDS ORDERED: GLUCAGON 1 MG VIAL IM PRN (14:29)
[2021-04-12] MEDS: KETOROLAC 15 MG/1 ML VIAL IV SCH ×4 (01:42→18:44)
[2021-04-12] MEDS: LACTATED RINGERS 1,000 ML IV SCH ×3 (01:46→22:34)
[2021-04-12] MEDS: DEXTROSE 5% NACL 0.45% 1,000 ML IV SCH ×2 (01:48→18:43)
[2021-04-12 06:59] LABS: Basophils # 0.1 10*3/uL (0.0-0.2); Basophils % 0.3 % (0.0-0.8); Eosinophils # 0.2 10*3/uL (0.0-0.87); Eosinophils % 1.3 % (0.00-10.9); Hematocrit 34.6 VOL% (35.7-47.0); Hemoglobin 10.4 GM/DL (12.0-16.0); Immature Granulocytes Absolute 0.16 #; Lymphocytes # 1.6 10*3/uL (1.4-4.0); Mean Corpuscular HGB Conc 30.1 GM/DL (32-36); Mean Corpuscular Volume 91.8 FL (87-102); Mean Platelet Volume 9.7 FL (9.6-12.0); Monocytes % 4.2 % (1.7-12.7); Neutrophils % 83.2 % (38.7-73.9); Platelet Count 658 T/CUMM (130-400); Red Blood Count 3.77 MC/CUMM (3.8-5.5); Red Cell Distribution Width 16.1 % (9.3-17.3); White Blood Count 15.6 T/CUMM (4-12)
[2021-04-12 07:12] LABS: Calcium 7.5 MG/DL (8.5-10.1); Osmolality,Calculated 271.8 MOS/KG (273-304); Potassium 3.7 MMOL/L (3.5-5.1)
[2021-04-12] MEDS: LIDOCAINE 5% PATCH TRANSDERM SCH (09:54)
[2021-04-12] MEDS: NICOTINE 21 MG/24 HR PATCH TRANSDERM SCH (09:54)
[2021-04-12] MEDS: MAGNESIUM OXIDE 400 MG TABLET PO SCH ×2 (09:57→21:48)
[2021-04-12] MEDS: PANTOPRAZOLE 40 MG TABLET PO SCH (09:57)
[2021-04-12] MEDS: METOCLOPRAMIDE 10 MG TABLET PO SCH ×2 (09:58→21:48)
[2021-04-12] MEDS: MULTIVITAMIN (CENTRUM) TABLET PO SCH (09:58)
[2021-04-12] MEDS: FLUoxetine 20 MG CAPSULE PO SCH (10:07)
[2021-04-12] MEDS: ONDANSETRON 4 MG/2 ML VIAL IV PRN (10:08)
[2021-04-12] MEDS ORDERED: LORazepam 2 MG/1 ML VIAL IV ONE (15:18)
[2021-04-12] MEDS: traZODone 50 MG TABLET PO PRN (22:29)
[2021-04-12] MEDS: HYDROmorphone 2 MG/1 ML VIAL IV PRN (22:34)
[2021-04-13] MEDS: KETOROLAC 15 MG/1 ML VIAL IV SCH ×4 (00:45→18:22)
[2021-04-13] MEDS: HYDROmorphone 2 MG/1 ML VIAL IV PRN (05:14)
[2021-04-13 05:58] LABS: Calcium 7.3 MG/DL (8.5-10.1); Potassium 3.5 MMOL/L (3.5-5.1)
[2021-04-13] MEDS: LACTATED RINGERS 1,000 ML IV SCH (09:58)
[2021-04-13] MEDS: FLUoxetine 20 MG CAPSULE PO SCH (09:59)
[2021-04-13] MEDS: PANTOPRAZOLE 40 MG TABLET PO SCH (09:59)
[2021-04-13] MEDS: MULTIVITAMIN (CENTRUM) TABLET PO SCH (09:59)
[2021-04-13] MEDS: MAGNESIUM OXIDE 400 MG TABLET PO SCH ×2 (09:59→21:11)
[2021-04-13] MEDS: METOCLOPRAMIDE 10 MG TABLET PO SCH ×2 (09:59→21:11)
[2021-04-13] MEDS: LIDOCAINE 5% PATCH TRANSDERM SCH (10:00)
[2021-04-13] MEDS: NICOTINE 21 MG/24 HR PATCH TRANSDERM SCH (10:00)
[2021-04-13] MEDS: MEROPENEM 500 MG in SODIUM CHLORIDE 0.9% 100 ML IV SCH ×3 (10:03→21:09)
[2021-04-13] MEDS: ALBUTEROL 2.5 MG/3 ML NEB RESP TX PRN (11:39)
[2021-04-13] MEDS: DEXTROSE 5% NACL 0.45% 1,000 ML IV SCH (12:05)
[2021-04-13] MEDS ORDERED: FUROSEMIDE 40 MG/4 ML VIAL IV ONE (14:08)
[2021-04-14] MEDS: KETOROLAC 15 MG/1 ML VIAL IV SCH ×2 (00:27→06:16)
[2021-04-14] MEDS: HYDROmorphone 2 MG/1 ML VIAL IV PRN (01:43)
[2021-04-14] MEDS: MEROPENEM 500 MG in SODIUM CHLORIDE 0.9% 100 ML IV SCH ×4 (03:22→21:43)
[2021-04-14 05:03] LABS: Basophils # 0.1 10*3/uL (0.0-0.2); Basophils % 0.3 % (0.0-0.8); Eosinophils # 0.4 10*3/uL (0.0-0.87); Eosinophils % 2.1 % (0.00-10.9); Hematocrit 31.1 VOL% (35.7-47.0); Hemoglobin 9.7 GM/DL (12.0-16.0); Immature Granulocytes Absolute 0.16 #; Lymphocytes # 1.5 10*3/uL (1.4-4.0); Lymphocytes % 9.2 % (21.3-54.2); Mean Corpuscular HGB Conc 31.2 GM/DL (32-36); Mean Corpuscular Volume 89.9 FL (87-102); Mean Platelet Volume 9.9 FL (9.6-12.0); Monocytes % 3.4 % (1.7-12.7); Platelet Count 588 T/CUMM (130-400); Red Blood Count 3.46 MC/CUMM (3.8-5.5); Red Cell Distribution Width 15.7 % (9.3-17.3); White Blood Count 16.6 T/CUMM (4-12)
[2021-04-14 05:23] LABS: Calcium 7.5 MG/DL (8.5-10.1); Osmolality,Calculated 272.8 MOS/KG (273-304); Potassium 4.6 MMOL/L (3.5-5.1)
[2021-04-14 05:27] LABS: Alanine Aminotransferase 11 U/L (13-56); Albumin 1.2 G/DL (3.4-5.0); Alkaline Phosphatase 74 U/L (45-117); Aspartate Amino Transferase 11 U/L (0-37); Bilirubin,Total < 0.39 MG/DL (0.20-1.00); Blood Urea Nitrogen 12 MG/DL (7-18); Calcium 7.2 MG/DL (8.5-10.1); Carbon Dioxide 31 MMOL/L (21-32); Estimated Glom Filtration Rate 105 ML/MIN; Glucose 104 MG/DL (74-106); Osmolality,Calculated 276.5 MOS/KG (273-304); Potassium 4.2 MMOL/L (3.5-5.1); Sodium 139 MMOL/L (136-145); Total Protein 4.5 G/DL (6.4-8.2)
[2021-04-14] MEDS: FLUoxetine 20 MG CAPSULE PO SCH (11:00)
[2021-04-14] MEDS: MAGNESIUM OXIDE 400 MG TABLET PO SCH ×2 (11:02→21:26)
[2021-04-14] MEDS: MULTIVITAMIN (CENTRUM) TABLET PO SCH (11:03)
[2021-04-14] MEDS: PANTOPRAZOLE 40 MG TABLET PO SCH (11:03)
[2021-04-14] MEDS: SPIRONOLACTONE 25 MG TABLET PO SCH (11:04)
[2021-04-14] MEDS: oxyCODONE/ACETAMINOPHEN 5-325 MG TABLET PO PRN ×3 (11:05→22:13)
[2021-04-14] MEDS: LIDOCAINE 5% PATCH TRANSDERM SCH (11:06)
[2021-04-14] MEDS: NICOTINE 21 MG/24 HR PATCH TRANSDERM SCH (13:05)
[2021-04-14] MEDS: MUPIROCIN 2% OINT 22 GM TUBE TOP SCH ×2 (17:43→21:26)
[2021-04-14] MEDS: traZODone 50 MG TABLET PO PRN (23:43)
[2021-04-15] MEDS: MEROPENEM 500 MG in SODIUM CHLORIDE 0.9% 100 ML IV SCH ×4 (03:35→21:23)
[2021-04-15] MEDS: oxyCODONE/ACETAMINOPHEN 5-325 MG TABLET PO PRN ×2 (05:26→17:04)
[2021-04-15 05:54] LABS: Basophils # 0.1 10*3/uL (0.0-0.2); Basophils % 0.6 % (0.0-0.8); Eosinophils # 0.3 10*3/uL (0.0-0.87); Eosinophils % 2.1 % (0.00-10.9); Hematocrit 33.7 VOL% (35.7-47.0); Hemoglobin 10.7 GM/DL (12.0-16.0); Immature Granulocytes % 1.6 %; Immature Granulocytes Absolute 0.23 #; Lymphocytes # 1.9 10*3/uL (1.4-4.0); Mean Corpuscular HGB Conc 31.8 GM/DL (32-36); Mean Corpuscular Volume 89.9 FL (87-102); Mean Platelet Volume 9.4 FL (9.6-12.0); Monocytes % 4.7 % (1.7-12.7); Platelet Count 659 T/CUMM (130-400); Red Blood Count 3.75 MC/CUMM (3.8-5.5); Red Cell Distribution Width 15.7 % (9.3-17.3); White Blood Count 14.4 T/CUMM (4-12)
[2021-04-15 06:08] LABS: Calcium 7.4 MG/DL (8.5-10.1); Osmolality,Calculated 272.8 MOS/KG (273-304); Potassium 4.2 MMOL/L (3.5-5.1)
[2021-04-15] MEDS: SPIRONOLACTONE 25 MG TABLET PO SCH (09:10)
[2021-04-15] MEDS: LIDOCAINE 5% PATCH TRANSDERM SCH (09:10)
[2021-04-15] MEDS: MAGNESIUM OXIDE 400 MG TABLET PO SCH ×2 (09:10→21:22)
[2021-04-15] MEDS: PANTOPRAZOLE 40 MG TABLET PO SCH (09:10)
[2021-04-15] MEDS: NICOTINE 21 MG/24 HR PATCH TRANSDERM SCH (09:10)
[2021-04-15] MEDS: MULTIVITAMIN (CENTRUM) TABLET PO SCH (09:11)
[2021-04-15] MEDS: MUPIROCIN 2% OINT 22 GM TUBE TOP SCH ×2 (09:20→16:54)
[2021-04-15] MEDS ORDERED: SKIN HEALING OINT (AQUAPHOR) 50 GM TUBE TOP PRN (10:34)
[2021-04-15] MEDS: ONDANSETRON 4 MG/2 ML VIAL IV PRN (13:49)
[2021-04-15] MEDS ORDERED: PROMETHAZINE INJ 12.5 MG in SODIUM CHLORIDE 0.9% 50 ML IV ONE (17:30)
[2021-04-15] MEDS: FLUoxetine 20 MG CAPSULE PO SCH (17:30)
[2021-04-15] MEDS ORDERED: PROMETHAZINE INJ 12.5 MG in SODIUM CHLORIDE 0.9% 50 ML IV PRN (18:32)
[2021-04-15] MEDS ORDERED: BISACODYL 10 MG SUPP RECTAL PRN (18:35)
[2021-04-16] MEDS: MUPIROCIN 2% OINT 22 GM TUBE TOP SCH ×4 (00:39→20:30)
[2021-04-16] MEDS: MEROPENEM 500 MG in SODIUM CHLORIDE 0.9% 100 ML IV SCH ×4 (02:49→20:30)
[2021-04-16] MEDS: oxyCODONE/ACETAMINOPHEN 5-325 MG TABLET PO PRN ×3 (06:47→23:50)
[2021-04-16] MEDS: ONDANSETRON 4 MG/2 ML VIAL IV PRN (07:09)
[2021-04-16] MEDS: MULTIVITAMIN (CENTRUM) TABLET PO SCH (09:45)
[2021-04-16] MEDS: PANTOPRAZOLE 40 MG TABLET PO SCH (09:45)
[2021-04-16] MEDS: SPIRONOLACTONE 25 MG TABLET PO SCH (09:45)
[2021-04-16] MEDS: MAGNESIUM OXIDE 400 MG TABLET PO SCH ×2 (09:45→20:29)
[2021-04-16] MEDS: FLUoxetine 20 MG CAPSULE PO SCH (09:45)
[2021-04-16] MEDS: NICOTINE 21 MG/24 HR PATCH TRANSDERM SCH (09:46)
[2021-04-16] MEDS: LIDOCAINE 5% PATCH TRANSDERM SCH (09:46)
[2021-04-17] MEDS: MEROPENEM 500 MG in SODIUM CHLORIDE 0.9% 100 ML IV SCH ×2 (04:20→09:25)
[2021-04-17] MEDS: oxyCODONE/ACETAMINOPHEN 5-325 MG TABLET PO PRN ×3 (04:53→13:49)
[2021-04-17] MEDS: MUPIROCIN 2% OINT 22 GM TUBE TOP SCH (09:12)
[2021-04-17] MEDS: NICOTINE 21 MG/24 HR PATCH TRANSDERM SCH (09:14)
[2021-04-17] MEDS: LIDOCAINE 5% PATCH TRANSDERM SCH (09:15)
[2021-04-17] MEDS: SPIRONOLACTONE 25 MG TABLET PO SCH (09:17)
[2021-04-17] MEDS: MULTIVITAMIN (CENTRUM) TABLET PO SCH (09:18)
[2021-04-17] MEDS: MAGNESIUM OXIDE 400 MG TABLET PO SCH (09:18)
[2021-04-17] MEDS: PANTOPRAZOLE 40 MG TABLET PO SCH (09:19)
[2021-04-17] MEDS: FLUoxetine 20 MG CAPSULE PO SCH (09:24)
[2021-04-17 11:47] VITALS: BP 107/62
[2021-04-17 14:19] LABS: Basophils # 0.1 10*3/uL (0.0-0.2); Basophils % 0.6 % (0.0-0.8); Eosinophils # 0.3 10*3/uL (0.0-0.87); Eosinophils % 2.4 % (0.00-10.9); Hematocrit 30.9 VOL% (35.7-47.0); Hemoglobin 9.7 GM/DL (12.0-16.0); Immature Granulocytes % 1.5 %; Immature Granulocytes Absolute 0.19 #; Lymphocytes # 1.8 10*3/uL (1.4-4.0); Lymphocytes % 14.9 % (21.3-54.2); Mean Corpuscular HGB Conc 31.4 GM/DL (32-36); Mean Corpuscular Volume 89.6 FL (87-102); Mean Platelet Volume 8.9 FL (9.6-12.0); Neutrophils % 73.6 % (38.7-73.9); Platelet Count 681 T/CUMM (130-400); Red Blood Count 3.45 MC/CUMM (3.8-5.5); Red Cell Distribution Width 15.7 % (9.3-17.3); White Blood Count 12.3 T/CUMM (4-12)
[2021-04-17 14:35] LABS: Calcium 7.3 MG/DL (8.5-10.1); Osmolality,Calculated 270.1 MOS/KG (273-304); Potassium 4.3 MMOL/L (3.5-5.1)
== END 2021-04-17 15:42 | DRG 166 ==
LOC: EDUNIT# → N.EDINP 00:19 → N.ED 00:19 → N.EDINP 05:59 → N.TELEN 06:08 → SUATTDRO 04-05 13:33
PROVIDERS: ADMIT Hospitalist; ATTEND Internal Medicine